=== PATIENT | female | born 1980 | race Hispanic/Latino ===

== ENCOUNTER 2021-09-20 18:09 | Emergency (ER) | payer BC ==
[~2021-09-20] VITALS: Ht 157.5 cm; Wt 63.0 kg
[2021-09-20 19:56] VITALS: BP 122/68
== END 2021-09-20 20:05 | disposition home or self-care (01) ==
LOC: FSED 18:14
DX: F41.0 Panic disorder [episodic paroxysmal anxiety] (principal)
CPT/HCPCS: 70450; 93005; 99283